=== PATIENT | female | born 1985 | race Caucasian/White ===

== ENCOUNTER 2018-04-10 20:09 | Emergency (ER) | END 2018-04-11 00:35 | disposition home or self-care (01) ==

== ENCOUNTER 2018-12-08 17:31 | Inpatient (IN) | payer MEDICAID ==
[~2018-12-08] VITALS: Ht 162.6 cm; Wt 80.4 kg
[~2018-12-08 17:31] MED LIST: PREN1TAB71 PO
[2018-12-08 18:02] VITALS: BP 128/80; PULSE 62; RESP 18; Ht 162.6 cm; Wt 80.4 kg
[2018-12-08] MEDS ORDERED: LACTATED RINGER'S 1,000 ML IV PRN (21:52)
[2018-12-08] MEDS ORDERED: MINERAL OIL LIGHT 10 ML VIAL TOP ONE (22:00)
[2018-12-08] MEDS ORDERED: OXYTOCIN 30 UNITS/LR 500 ML IV PRN (22:00)
[2018-12-08] MEDS ORDERED: IBUPROFEN 600 MG TAB PO PRN (22:00)
[2018-12-08] MEDS ORDERED: MISOPROSTOL 200 MCG TAB PR PRN (22:00)
[2018-12-08] MEDS ORDERED: METHYLERGONOVINE 0.2 MG INJ IM PRN (22:00)
[2018-12-08] MEDS ORDERED: LIDOCAINE 1% (MPF) 30 ML INJ INJ PRN (22:00)
[2018-12-08] MEDS ORDERED: BUTORPHANOL 1 MG INJ IV PRN (22:00)
[2018-12-08] MEDS ORDERED: BUTORPHANOL 2 MG INJ IV PRN (22:00)
[2018-12-08] MEDS ORDERED: CARBOPROST 250 MCG INJ IM PRN (22:00)
[2018-12-08] MEDS ORDERED: OXYTOCIN 30 UNITS/LR 500 ML IV SCH ×3 (22:00)
[2018-12-09] MEDS: LACTATED RINGER'S 1,000 ML IV SCH ×5 (00:32→23:47)
--- NOTE | 2018-12-09 01:29 | TRIAGE ---
OB Triage Datetime Report Generated by CPN: 12/09/2018 01:28 Datetime: 12/09/2018 01:24 Vaginal Exam Dilatation (cms): 4.0 Effacement (%): 60 Station: -2 Exam By: Jayson Villafana RN Vaginal Bleeding: None Cervix, Consistency: Soft Cervix, Position: Midposition Datetime: 12/09/2018 01:12 Assessment Type: Admission Assessment Vaginal Bleeding: None Maternal Assessment Level of Consciousness: Fully Conscious DTR's/Clonus: DTRs 2+; No Clonus Headache: Denies Blurred Vision: No Respiratory Effort: Unlabored; Regular Rhythm; Equal Expansion Breath Sounds, Left: Clear and Equal Breath Sounds, Right: Clear and Equal Nausea/Vomiting: Denies RUQ Epigastric Pain: Denies Lower Extremities Edema: Bilateral Lower Extremities Degree: 1+ Upper Extremities Edema: None Degree: None Facial Edema: None Fall Risk Assessment History of Falling: (0) No Secondary Diagnosis: (0) No Ambulatory Aid: (0) Bedrest/Nurse Assist IV Therapy: (20) Yes Gait: (0) Normal/Bedrest/Immobile Mental Status: (0) Oriented to Own Ability Fall Score: 20 Fall Risk Score Definition: No Risk: No action required Pain Assessment Pain Scale: 4 Pain Presence: Intermittent Pain Type: Contraction Pain Location: Abdomen; Back Membrane Status: Intact Datetime: 12/09/2018 00:57 Pain Assessment Pain Scale: 4 Pain Presence: Intermittent Pain Type: Contraction Pain Location: Abdomen; Back Pain Relief Measures: Comfort Measures Datetime: 12/09/2018 00:40 Stage of : OB Triage Maternal Assessment Level of Consciousness: Fully Conscious DTR's/Clonus: DTRs 2+; No Clonus Headache: Denies Blurred Vision: No Respiratory Effort: Unlabored; Regular Rhythm; Equal Expansion Breath Sounds, Left: Clear and Equal Breath Sounds, Right: Clear and Equal Nausea/Vomiting: Denies RUQ Epigastric Pain: Denies Facial Edema: None Fall Risk Assessment History of Falling: (0) No Secondary Diagnosis: (0) No Ambulatory Aid: (0) Bedrest/Nurse Assist Gait: (0) Normal/Bedrest/Immobile Mental Status: (0) Oriented to Own Ability Datetime: 12/09/2018 00:39 Time of Arrival: 12/08/2018 00:30 EGA: 39.6 Arrived By: Ambulatory Arrived From: Home Datetime: 12/09/2018 00:10 Stage of : OB Triage Monitor Mode: External Quality: Moderate Pattern: Normal: <= 5 Contractions in 10 Minutes Resting Tone Hagerman: Relaxed Heart Rate FHR Baseline Rate: 130 Monitor Mode: External US FHR Baseline Changes: No Baseline Change Variability: Moderate 6-25 bpm Accelerations: 15X15 Decelerations: None Category: Category I Datetime: 12/08/2018 23:20 Heart Rate FHR Baseline Rate: 130 Monitor Mode: External US FHR Baseline Changes: No Baseline Change Variability: Marked >25 bpm Accelerations: 15X15 Decelerations: Variable Category: Category II Datetime: 12/08/2018 22:28 Stage of : OB Triage Monitor Mode: External Quality: Moderate Pattern: Normal: <= 5 Contractions in 10 Minutes Resting Tone Hagerman: Relaxed Heart Rate FHR Baseline Rate: 140 Monitor Mode: External US Variability: Moderate 6-25 bpm Accelerations: 15X15 Pain Assessment Pain Scale: 4 Pain Presence: Intermittent Pain Type: Contraction Pain Location: Abdomen Datetime: 12/08/2018 21:53 Stage of : OB Triage Heart Rate FHR Baseline Rate: 140 Monitor Mode: External US Datetime: 12/08/2018 21:40 Stage of : OB Triage Datetime: 12/08/2018 21:07 Stage of : OB Triage Monitor Mode: External Quality: Moderate Pattern: Normal: <= 5 Contractions in 10 Minutes Resting Tone Hagerman: Relaxed Heart Rate FHR Baseline Rate: 130 Monitor Mode: External US FHR Baseline Changes: No Baseline Change Variability: Moderate 6-25 bpm Accelerations: 15X15 Decelerations: Variable Category: Category II Pain Assessment Pain Scale: 4 Pain Presence: Intermittent Pain Type: Cramping Pain Location: Abdomen Vaginal Exam Dilatation (cms): 3.0 Effacement (%): 50 Station: -3 Exam By: Zechariah Carbone Membrane Status: Intact Vaginal Bleeding: None Cervix, Consistency: Soft Cervix, Position: Posterior Presentation 'A': Cephalic Datetime: 12/08/2018 20:02 Labor Evaluation Frequency: X1 Monitor Mode: External Duration (sec)2399: 80 Quality: Mild Pattern: Normal: <= 5 Contractions in 10 Minutes Resting Tone Hagerman: Relaxed Heart Rate FHR Baseline Rate: 125 Monitor Mode: External US FHR Baseline Changes: No Baseline Change Variability: Moderate 6-25 bpm Accelerations: 15X15 Decelerations: None Category: Category I Datetime: 12/08/2018 19:21 Membrane Status: Intact Datetime: 12/08/2018 18:04 Time of Arrival: 12/08/2018 18:00 EGA: 39.6 Arrived By: Ambulatory Arrived From: Home Chief Complaint: high blood pressure Movement: Present Contractions: Irregular Rupture of Membranes: Denies Vaginal Discharge: Denies Recent Sexual Intercouse: Denies Abdominal Trauma: Not Applicable Patient Complaints: Other Additional Patient Complaints: sent from clinic for evaluation of high blood pressure Time Provider Notified: 12/08/2018 21:40 Provider Notified: Dr Moore Initial Plan: efm/ u/s, PIH lab Datetime: 12/08/2018 18:00 Stage of : OB Triage Maternal Assessment Level of Consciousness: Fully Conscious DTR's/Clonus: DTRs 2+; No Clonus Headache: Denies Blurred Vision: No Respiratory Effort: Unlabored; Regular Rhythm; Equal Expansion Breath Sounds, Left: Clear and Equal Breath Sounds, Right: Clear and Equal Nausea/Vomiting: Denies RUQ Epigastric Pain: Denies Lower Extremities Edema: Bilateral Lower Extremities Degree: 1+ Upper Extremities Edema: None Facial Edema: None Temperature Route: Oral Fall Risk Assessment History of Falling: (0) No Secondary Diagnosis: (0) No Ambulatory Aid: (0) Bedrest/Nurse Assist IV Therapy: (0) No Gait: (0) Normal/Bedrest/Immobile Mental Status: (0) Oriented to Own Ability Fall Score: 0 Fall Risk Score Definition: No Risk: No action required Monitor Mode: External Heart Rate FHR Baseline Rate: 130 Monitor Mode: External US Pain Assessment Pain Scale: 0 Datetime: 10/20/2018 15:31 Heart Rate FHR Baseline Rate: 135 Monitor Mode: External US Accelerations: 15X15 Category: Category I Datetime: 10/20/2018 14:29 Stage of : OB Triage Labor Evaluation Frequency: 0 Monitor Mode: External Pattern: Normal: <= 5 Contractions in 10 Minutes Resting Tone Hagerman: Relaxed Heart Rate FHR Baseline Rate: 135 Monitor Mode: External US Variability: Moderate 6-25 bpm Accelerations: 15X15 Decelerations: None Category: Category I Pain Presence: None/Denies Datetime: 10/20/2018 13:36 Stage of : OB Triage Labor Evaluation Frequency: 0 Monitor Mode: External Pattern: Normal: <= 5 Contractions in 10 Minutes Resting Tone Hagerman: Relaxed Heart Rate FHR Baseline Rate: 135 Monitor Mode: External US Variability: Moderate 6-25 bpm Accelerations: 15X15 Decelerations: None Category: Category I Pain Presence: None/Denies Pain Type: N/A Datetime: 10/20/2018 12:17 Stage of : OB Triage Assessment Type: Triage Time of Arrival: 10/20/2018 12:00 EGA: 32.6 Arrived By: Ambulatory Arrived From: Office Chief Complaint: C/O EPI GASTRIC PAIN Movement: Present Contractions: Denies/Absent Rupture of Membranes: Denies Vaginal Bleeding: None Vaginal Discharge: Denies Recent Sexual Intercouse: Denies Abdominal Trauma: Not Applicable Patient Complaints: Other Time Provider Notified: 10/20/2018 14:38 Provider Notified: BRENDON Initial Plan: EFM NST BPP CALL MD Maternal Assessment Level of Consciousness: Fully Conscious DTR's/Clonus: DTRs 2+; No Clonus Headache: Denies Blurred Vision: No Respiratory Effort: Unlabored; Regular Rhythm; Equal Expansion Breath Sounds, Left: Clear and Equal Breath Sounds, Right: Clear and Equal Nausea/Vomiting: Denies RUQ Epigastric Pain: Denies Lower Extremities Edema: None Degree: None Upper Extremities Edema: None Facial Edema: None Temperature Route: Oral Fall Risk Assessment History of Falling: (0) No Secondary Diagnosis: (0) No Ambulatory Aid: (0) Bedrest/Nurse Assist IV Therapy: (0) No Gait: (0) Normal/Bedrest/Immobile Mental Status: (0) Oriented to Own Ability Fall Score: 0 Fall Risk Score Definition: No Risk: No action required Monitor Mode: External (Annotations: INITAL PLACEMENT ) Monitor Mode: External US Pain Assessment Pain Scale: 3 Pain Presence: Intermittent Pain Type: Cramping Pain Location: Abdomen
--- NOTE | 2018-12-09 01:54 | PREAC ---
Date/Time of Note Date/Time of Note DATE: 12/09/18 TIME: :53 Anesthesia Eval and Record Evaluation Time Pre-Procedure Interview DATE: 12/09/18 TIME: :53 Age 33 Sex female NPO: 8 hrs Preoperative diagnosis labor pain Planned procedure epidural Past Medical History Past Medical History: Includes Surgery & Anesthesia Issues No known issue Meds Anticoagulation: No Beta Modesta within 24 hr: No Reason Beta Modesta not given: Pt. not on B-Modesta Reported Medications Vit No.130/Iron/FA ( Tablet) 1 Each Tablet, 1 EACH PO 10/20/18 Current Medications Lactated Ringer's 1,000 ml @ 125 mls/hr Q8H IV Last administered on 12/09/18at 01:47; Admin Dose 125 MLS/HR; Start 12/08/18 at 21:52 Butorphanol Tartrate (Stadol) 1 mg Q2H PRN IV .PAIN; Start 12/08/18 at 22:00 Butorphanol Tartrate (Stadol) 2 mg Q2H PRN IV .PAIN; Start 12/08/18 at 22:00 Lidocaine (Xylocaine 1% (Mpf)) 30 ml ONCE PRN INJ .EPISIOTOMY; Start 12/08/18 at 22:00 Oxytocin/Lactated Ringer's 500 ml @ 500 mls/hr ONCE POST IV ; Start 12/08/18 at 22:00 Oxytocin/Lactated Ringer's 500 ml @ 125 mls/hr POST IV ; Start 12/08/18 at 22:00 Ibuprofen (Motrin) 600 mg ONCE PRN PO .PAIN 1-5; Start 12/08/18 at 22:00 Lactated Ringer's 1,000 ml @ 2,000 mls/hr Q30M PRN IV .ANESTHESIA; Start 12/08/18 at 21:52 Oxytocin/Lactated Ringer's 500 ml @ 0 mls/hr ONCE PRN IV .VAGINAL BLEEDING; Start 12/08/18 at 22:00 Methylergonovine Maleate (Methergine) 0.2 mg ONCE PRN IM .VAGINAL BLEEDING; Start 12/08/18 at 22:00 Carboprost Tromethamine (Hemabate) 250 mcg ONCE PRN IM .VAGINAL BLEEDING; Start 12/08/18 at 22:00 Misoprostol (Cytotec) 1,000 mcg ONCE PRN [place] .VAGINAL BLEEDING; Start 12/08/18 at 22:00 Oxytocin/Lactated Ringer's 500 ml @ 0 mls/hr FOR AUGMENTATION IV Last administered on 12/09/18at 01:48; Admin Dose 1 MLS/HR; Start 12/08/18 at 22:00 Meds reviewed: Yes Allergies Coded Allergies: No Known Allergies (Verified Allergy, Unknown, 10/20/18) Allergies Reviewed: Yes Labs/Studies Labs Reviewed: Reviewed by anesthesiologist Result Diagram: 12/08/184 12/08/184 Laboratory Tests 12/08/18 18:54 Blood Bank Test 12/08/18 18:54 Antibody Screen NEGATIVE Blood Type O POSITIVE Rh Immune Globulin Candidate NO test: Positive Studies: ECG (n/a), CXR (n/a) Pre-procedure Exam Last vitals Vital Signs Date Temp Pulse Resp B/P (MAP) Pulse Ox O2 O2 Flow FiO2 Time Delivery Rate 12/08/18 98.0 62 18 128/80 Room Air 18:02 (96) Airway: Adequate mouth opening Mallampati: Mallampati I Teeth: Normal Lung: Normal Heart: Normal ASA Physical Status ASA physical status: 2 Emergency: None Planned Anesthetic Neuraxial: Epidural Pre-operative Attestations Prior to commencing anesthesia and surgery, the patient was re-evaluated, there was verification of: *The patient's identity *The results of appropriate recent lab work and preoperative vital signs *The above evaluation not changing prior to induction *Anesthetic plan, risk benefits, alternative and complications discussed with patient/family; questions answered; patient/family understands, accepts and wishes to proceed. MAHESH PANIAGUA MD Dec 09, 2018 01:54
[2018-12-09] MEDS ORDERED: FENTAnyl 2MCG/ML-ROPIV 0.2% 100 ML ONE (02:13)
[2018-12-09] MEDS ORDERED: FENTAnyl 2MCG/ML-ROPIV 0.2% 100 ML BAG EPI SCH (02:30)
[2018-12-09] MEDS ORDERED: NALOXONE (0.4 MG/ML) INJ IV PRN ×2 (02:30→10:30)
--- NOTE | 2018-12-09 06:29 | QN ---
Documentation Comment patient currently cat 2 tracing. I recommened a CD however patient declining. All the risk were explained to patient and at bedside. FABIANO OLIVAS MD Dec 09, 2018 06:29
--- NOTE | 2018-12-09 07:27 | QN ---
Documentation Comment patient continue to have non reassuring heart tracing; patient continues to decline CD. all risk was explained to patient. patient verbally reports she understand. FOB also understands at bedside. FABIANO OLIVAS MD Dec 09, 2018 07:27
--- NOTE | 2018-12-09 07:43 | PREOPHP ---
DATE OF ADMISSION: 12/08/2018 HISTORY OF PRESENT ILLNESS: Liliya Pride is a 33-year-old 4, para 2, EDC 12/09/2018 intrau terine at 40 weeks' gestational age was sent from clinic yesterday secondary to elevated bl ood pressures. She was evaluated to be in early labor. She denies any headache, nausea, vomiting, s hortness of breath, or visual changes. Her care took place at [facility] . PAST MEDICAL HISTORY: None. MEDICATIONS: vitamins. PAST SURGICAL HISTORY: None. OBSTETRIC HISTORY: Vaginal deliveries x2, missed AB x1. GYNECOLOGIC HISTORY: Twelve, regular 3 to 4 days. Denies any sexually transmitted disease. Sexuall y active with 1 partner. SOCIAL HISTORY: Denies any smoking, drugs or alcohol. FAMILY HISTORY: None. REVIEW OF SYSTEMS: Within normal limits. PHYSICAL EXAMINATION: HEENT: Within normal limits. LUNGS: CTA bilateral. CARDIOVASCULAR: S1, S2 is a regular rhythm. ABDOMEN: Gravid, nontender. Negative CVA bilateral. EXTREMITIES: Negative edema. No calf tenderness. PELVIC: Vaginal exam currently 9 cm dilated, 100% effaced, 0 station with spontaneous rupture of reg ular, heart tracing category 1. Tocometer regular contractions. ASSESSMENT: Intrauterine at 40 weeks' gestational age, admitted for labor augmentation wit h Pitocin with gestational hypertension. PLAN: Anticipate a vaginal delivery. Dictated By: FABIANO CARBAJAL/BRIANNA Conf#: [id number] DID#: [id number]
[2018-12-09] MEDS ORDERED: CITRIC ACID/NA CITRATE 30 ML CUP ONE (07:59)
[2018-12-09] MEDS ORDERED: SOD CHLORIDE 0.9% 1,000 ML IV SCH (08:00)
[2018-12-09] MEDS ORDERED: CEFAZOLIN 2 GM/50 ML (PMX) 50 ML IVPB SCH (08:00)
--- NOTE | 2018-12-09 08:01 | PREAC ---
Date/Time of Note Date/Time of Note DATE: 12/09/18 TIME: 08:00 Anesthesia Eval and Record Evaluation Time Pre-Procedure Interview DATE: 12/09/18 TIME: 08:00 Age 33 Sex female NPO: 8 hrs Preoperative diagnosis Distress Planned procedure Emergency Past Medical History Past Medical History: Includes Heme: Anemia : : (3), Para: (2), Gestational age: (40) Surgery & Anesthesia Issues No known issue Meds Anticoagulation: No Beta Modesta within 24 hr: No Reason Beta Modesta not given: Pt. not on B-Modesta Reported Medications Vit No.130/Iron/FA ( Tablet) 1 Each Tablet, 1 EACH PO 10/20/18 Current Medications Lactated Ringer's 1,000 ml @ 125 mls/hr Q8H IV Last administered on 12/09/18at 06:29; Admin Dose 125 MLS/HR; Start 12/08/18 at 21:52 Butorphanol Tartrate (Stadol) 1 mg Q2H PRN IV .PAIN; Start 12/08/18 at 22:00 Butorphanol Tartrate (Stadol) 2 mg Q2H PRN IV .PAIN; Start 12/08/18 at 22:00 Lidocaine (Xylocaine 1% (Mpf)) 30 ml ONCE PRN INJ .EPISIOTOMY; Start 12/08/18 at 22:00 Oxytocin/Lactated Ringer's 500 ml @ 500 mls/hr ONCE POST IV ; Start 12/08/18 at 22:00 Oxytocin/Lactated Ringer's 500 ml @ 125 mls/hr POST IV ; Start 12/08/18 at 22:00 Ibuprofen (Motrin) 600 mg ONCE PRN PO .PAIN 1-5; Start 12/08/18 at 22:00 Lactated Ringer's 1,000 ml @ 2,000 mls/hr Q30M PRN IV .ANESTHESIA; Start 12/08/18 at 21:52 Oxytocin/Lactated Ringer's 500 ml @ 0 mls/hr ONCE PRN IV .VAGINAL BLEEDING; Start 12/08/18 at 22:00 Methylergonovine Maleate (Methergine) 0.2 mg ONCE PRN IM .VAGINAL BLEEDING; Start 12/08/18 at 22:00 Carboprost Tromethamine (Hemabate) 250 mcg ONCE PRN IM .VAGINAL BLEEDING; Start 12/08/18 at 22:00 Misoprostol (Cytotec) 1,000 mcg ONCE PRN [place] .VAGINAL BLEEDING; Start 12/08/18 at 22:00 Oxytocin/Lactated Ringer's 500 ml @ 0 mls/hr FOR AUGMENTATION IV Last administered on 12/09/18at 01:48; Admin Dose 1 MLS/HR; Start 12/08/18 at 22:00 Naloxone HCl (Narcan) 0.2 mg Q2M PRN IV .RESP RATE; Start 12/09/18 at 02:30 Fentanyl/ Ropivacaine 100 ml EPIDURAL (PCEA) EPI ; Start 12/09/18 at 02:30 Sodium Chloride 1,000 ml @ 125 mls/hr Q8H IV ; Start 12/09/18 at 08:00 Cefazolin Sodium/ Dextrose 50 ml @ 100 mls/hr ONCE IVPB ; Start 12/09/18 at 08:00 Meds reviewed: Yes Allergies Coded Allergies: No Known Allergies (Verified Allergy, Unknown, 10/20/18) Allergies Reviewed: Yes Labs/Studies Labs Reviewed: Reviewed by anesthesiologist Result Diagram: 12/08/184 12/08/184 Laboratory Tests 12/08/18 18:54 Blood Bank Test 12/08/18 18:54 Antibody Screen NEGATIVE Blood Type O POSITIVE Rh Immune Globulin Candidate NO test: Positive Studies: ECG (n/a), CXR (n/a) Pre-procedure Exam Last vitals Vital Signs Date Temp Pulse Resp B/P (MAP) Pulse Ox O2 O2 Flow FiO2 Time Delivery Rate 12/08/18 98.0 62 18 128/80 Room Air 18:02 (96) Airway: Adequate mouth opening, Adequate thyromental dist Mallampati: Mallampati II Teeth: Normal Lung: Normal Heart: Normal ASA Physical Status ASA physical status: 2 Emergency: None Planned Anesthetic Neuraxial: Spinal Planned Pain Management Sub-arachniod narcotics, Parenteral pain med Pre-operative Attestations Prior to commencing anesthesia and surgery, the patient was re-evaluated, there was verification of: *The patient's identity *The results of appropriate recent lab work and preoperative vital signs *The above evaluation not changing prior to induction *Anesthetic plan, risk benefits, alternative and complications discussed with patient/family; questions answered; patient/family understands, accepts and wishes to proceed. RICCI KLEIN MD Dec 09, 2018 08:01
[2018-12-09] MEDS ORDERED: morphine SULFATE/PF (10 MG/10 ML) INJ ONE (08:06)
[2018-12-09] MEDS ORDERED: PHENYLephrine (100 MCG/ML) 10ML SYG ONE (08:06)
[2018-12-09] MEDS ORDERED: OXYTOCIN 10 UNIT INJ ONE (08:06)
[2018-12-09] MEDS ORDERED: AZITHROMYCIN 500MG/NS (PMX) 250 ML IV SCH (08:21)
[2018-12-09] MEDS ORDERED: METOCLOPRAMIDE 10 MG INJ ONE (08:29)
[2018-12-09] MEDS ORDERED: KETOROLAC 30 MG INJ ONE (08:29)
[2018-12-09] MEDS ORDERED: DEXAMETHASONE 4 MG/ML 1 ML INJ ONE (08:29)
[2018-12-09] MEDS ORDERED: CITRIC ACID/NA CITRATE 30 ML CUP PO ONE (08:30)
[2018-12-09] MEDS ORDERED: ONDANSETRON 4 MG INJ IV ONE (08:30)
[2018-12-09] MEDS ORDERED: OXYTOCIN 30 UNITS/LR 500 ML IV SCH (08:46)
--- NOTE | 2018-12-09 08:46 | OPPN ---
Date/Time of Note Date/Time of Note DATE: 12/09/18 TIME: 08:43 Operative Report Planned Procedure Procedure date Dec 09, 2018 Procedure(s) primary low transverse CD Performed by see signature line Senior Buyer: ALEXSANDER NASH MD 2nd Senior Buyer none Pre-procedure diagnosis Intrauterine at 40 weeks' gestational age, gestational hypertension. cat 2/3 heart tracing/ positive meconium [id number] Anesthesia Type: [id number] epidural Post-Procedure Post-procedure diagnosis same Findings a viable male apar weight 6lb 5 oz. X1 reducible cord around neck. positive meconium,, normal uterus tubes and ovaries Estimated Blood Loss: 500 - 600 mls (500) Specimen(s) none Grafts/Implant(s) none Complication(s) none FABIANO OLIVAS MD Dec 09, 2018 08:46
--- NOTE | 2018-12-09 08:54 | PAC ---
Date/Time of Note Date/Time of Note DATE: 12/09/18 TIME: 08:54 Post-Anesthesia Notes Post-Anesthesia Note Last documented vital signs Vital Signs Date Temp Pulse Resp B/P (MAP) Pulse Ox O2 O2 Flow FiO2 Time Delivery Rate 12/09/18 98.0 62 18 128/80 97 Room Air 08:58 (96) Activity: WNL Respiratory function: WNL Cardiovascular function: WNL Mental status: Baseline Pain reasonably controlled: Yes Hydration appropriate: Yes Nausea/Vomiting absent: Yes RICCI KLEIN MD Dec 09, 2018 08:54
[2018-12-09] MEDS ORDERED: OXYCODONE/ACETAMINOPHEN (5/325) TAB PO PRN (09:00)
[2018-12-09] MEDS ORDERED: CARBOPROST 250 MCG INJ IM PRN (09:00)
[2018-12-09] MEDS ORDERED: LANOLIN HPA 1 PKT TOP PRN (09:00)
[2018-12-09] MEDS ORDERED: MISOPROSTOL 200 MCG TAB PR PRN (09:00)
[2018-12-09] MEDS ORDERED: NACL 0.9% 3 ML SYG IV SCH (09:00)
[2018-12-09] MEDS ORDERED: OXYTOCIN 30 UNITS/LR 500 ML IV PRN (09:00)
[2018-12-09] MEDS ORDERED: METHYLERGONOVINE 0.2 MG INJ IM PRN (09:00)
[2018-12-09] MEDS ORDERED: DIPHENHYDRAMINE 50 MG INJ ONE (09:55)
[2018-12-09] MEDS ORDERED: ACETAMINOPHEN 500 MG TAB PO PRN (10:30)
[2018-12-09] MEDS ORDERED: HYDROmorphONE 0.5 MG/0.5 ML SYG IV PRN (10:30)
[2018-12-09] MEDS ORDERED: HYDROCODONE/APAP (5/325) TAB PO PRN (10:30)
[2018-12-09] MEDS ORDERED: NALBUPHINE HCL (10 MG/1 ML) INJ IV PRN (10:30)
[2018-12-09] MEDS ORDERED: DIPHENHYDRAMINE 50 MG INJ IV PRN (10:58)
[2018-12-09] MEDS ORDERED: morphine 4 MG/ML VIAL IV PRN ×2 (11:30)
[2018-12-09 11:45] VITALS: BP 135/81; PULSE 69; RESP 16
[2018-12-09] MEDS ORDERED: IBUPROFEN 600 MG TAB PO SCH (12:00)
[2018-12-09 12:49] VITALS: BP 128/81; PULSE 74; RESP 16
[2018-12-09] MEDS: KETOROLAC 30 MG INJ IV PRN (15:06)
[2018-12-09 15:34] VITALS: BP 121/81; PULSE 72; RESP 20
[2018-12-09] MEDS: CEFAZOLIN 2 GM/50 ML (PMX) 50 ML IVPB SCH (17:01)
[2018-12-09] MEDS: HYDROmorphONE 0.5 MG/0.5 ML SYG IV PRN ×2 (17:14→22:37)
[2018-12-09 19:50] VITALS: BP 138/71; PULSE 76; RESP 18
--- NOTE | 2018-12-09 21:29 | PAC ---
Date/Time of Note Date/Time of Note DATE: 12/09/18 TIME: 21:28 Post-Anesthesia Notes Post-Anesthesia Note Last documented vital signs Vital Signs Date Temp Pulse Resp B/P (MAP) Pulse Ox O2 O2 Flow FiO2 Time Delivery Rate 12/09/18 98.4 76 18 138/71 98 Room Air 19:50 (93) Activity: WNL Respiratory function: WNL Cardiovascular function: WNL Mental status: Baseline Pain reasonably controlled: Yes Hydration appropriate: Yes Nausea/Vomiting absent: No MAHESH PANIAGUA MD Dec 09, 2018 21:29
[2018-12-09 23:50] VITALS: BP 107/60; PULSE 83; RESP 18
[2018-12-10] MEDS: CEFAZOLIN 2 GM/50 ML (PMX) 50 ML IVPB SCH ×2 (00:47→08:26)
[2018-12-10 03:50] VITALS: BP 103/65; PULSE 74; RESP 19
[2018-12-10] MEDS: KETOROLAC 30 MG INJ IV PRN (05:19)
[2018-12-10] MEDS: LACTATED RINGER'S 1,000 ML IV SCH ×3 (07:00→22:57)
[2018-12-10 08:00] VITALS: BP 109/71; PULSE 68; RESP 18
[2018-12-10] MEDS: FERROUS SULFATE (EC) 325 MG TAB PO SCH ×2 (08:26→21:41)
--- NOTE | 2018-12-10 09:55 | OPR ---
DATE OF OPERATION: 12/10/2018 PREOPERATIVE DIAGNOSES: Intrauterine at 39 weeks gestational age, gestational hypertension , in labor, category 2/category 3 tracing remote from delivery. POSTOPERATIVE DIAGNOSES: Intrauterine at 39 weeks gestational age, gestational hypertensio n, in labor, category 2/category 3 tracing remote from delivery. PROCEDURE: Primary low transverse delivery. CARDIAC RN: Dr. Ignacio. ANESTHESIA: Epidural. COMPLICATIONS: None. ESTIMATED BLOOD LOSS: 500 mL. FINDINGS: A viable male, 5, 8 and 9 respectively at 1, 5, and 10 minutes, weight 6 pounds 5 ou nces, x1 reducible cord around the neck x1. Positive meconium. Normal uterus, tubes and ovaries. DESCRIPTION OF PROCEDURE: After explaining the risks, benefits and alternatives and consent signed i n chart, the patient was taken to the operating room where epidural anesthesia was found to be adequa te. She was then prepared and draped in normal sterile fashion in dorsal supine position with a left queen tilt. A Pfannenstiel skin incision was then made with a scalpel and carried to the underlying o f the fascia. The fascia was incised in midline, incision was extended laterally with Johnson scissors. The superior aspect of the fascial incision was grasped with curved clamps, elevated and the underl gm rectus muscles dissected off bluntly. Attention was then turned to the inferior aspect of the i ncision which in similar fashion was grasped, tented up with curved clamps and rectus muscles dissect ed off bluntly. The rectus muscle was in midline, peritoneum identified, entered sharply w ith Metzenbaum scissors. This incision was extended laterally and a bladder flap created digitally. The bladder blade was then reinserted and the lower segment incised in transverse fashion with a sca lpel. The uterine incision was extended laterally. The bladder blade was removed and the infant's h ead delivered atraumatically. The nose and mouth were suctioned and cord clamped and cut. The infan t was handed off to awaiting yeast stacker. The placenta was then removed. The uterus was exterioriz ed and cleared of all clots and debris. The uterine incision was repaired with 1-0 chromic in a runn ing locked fashion. A second layer of same suture was used for imbrication obtaining excellent hemos tasis. The uterus was returned to the abdomen. The gutters were cleared of all clots. The peritone um and rectus abdominis muscles reapproximated with 2-0 Vicryl in an interrupted fashion. The fascia was reapproximated with 0 Vicryl in a running fashion. The subcutaneous tissue was reapproximated w ith 2-0 plain gut in a running fashion. The skin was closed with absorbable tiffanie. The patient to lerated procedure well. Sponge, lap and needle counts correct. The patient was taken to recovery ro om in stable condition. Dictated By: FABIANO CARBAJAL/BRIANNA Conf#: [id number] DID#: [id number] CC: FABIANO OLIVAS MD;*EndCC*
[2018-12-10] MEDS: IBUPROFEN 600 MG TAB PO SCH ×3 (12:17→23:46)
--- NOTE | 2018-12-10 13:08 | DS ---
Date/Time of Note Date/Time of Note DATE: 12/10/18 TIME: 13:07 Obstetrical Discharge Record Final Diagnosis Final Diagnosis: Term delivered Vaginal Delivery Obstetrical Delivery: Spontaneous Condition on Discharge Physical Assessment Last Vitals: stable afebrile Voiding: Yes Bowel Movement: Yes Breast: Soft, non-tender, Filling Fundus: Firm Abdomen and Incision: soft nt Calf Tenderness: No Patient Condition: Fair FABIANO OLIVAS MD Dec 10, 2018 13:08
[2018-12-10 19:50] VITALS: BP 118/72; PULSE 78; RESP 19
[2018-12-10] MEDS: OXYCODONE/ACETAMINOPHEN (5/325) TAB PO PRN (19:51)
[2018-12-11 03:40] VITALS: BP 106/55; PULSE 69; RESP 18
[2018-12-11] MEDS: IBUPROFEN 600 MG TAB PO SCH ×4 (05:31→23:14)
[2018-12-11] MEDS: LACTATED RINGER'S 1,000 ML IV SCH ×2 (06:48→15:00)
[2018-12-11 08:31] VITALS: BP 123/73; PULSE 70; RESP 18
[2018-12-11] MEDS: OXYCODONE/ACETAMINOPHEN (5/325) TAB PO PRN (08:31)
[2018-12-11] MEDS: FERROUS SULFATE (EC) 325 MG TAB PO SCH ×2 (08:32→20:52)
[2018-12-11 15:53] VITALS: BP 130/67; PULSE 77; RESP 18
[2018-12-11 20:05] VITALS: BP 114/56; PULSE 75; RESP 18
--- NOTE | 2018-12-11 22:08 | QN ---
Documentation Comment i attempted to see patient in her room however patient was in nicu and not available to be evaluated. her nurse report she is stable and her incision is c/d/i. I will reattempt to see her tomorrow. FABIANO OLIVAS MD Dec 11, 2018 22:08
[2018-12-12 04:10] VITALS: BP 124/75; PULSE 83; RESP 20
[2018-12-12] MEDS: IBUPROFEN 600 MG TAB PO SCH ×2 (05:33→12:10)
[2018-12-12 08:00] VITALS: BP 123/79; PULSE 73; RESP 18
[2018-12-12] MEDS: FERROUS SULFATE (EC) 325 MG TAB PO SCH (09:11)
--- NOTE | 2018-12-12 11:31 | QN ---
Documentation Comment patient was seen and evaluated no complaints vs stable afebrile abd c/d/i no distention nt uterine fundus firm extremity no edema no calf tendernss a/ sp cd pod 3 stable afebrile p/ discharge home today or tomorrow FABIANO OLIVAS MD Dec 12, 2018 11:31
--- NOTE | 2018-12-12 11:33 | PD.PPDC ---
VEGETABLE BUNCHER Discharge Instruction Condition [id number] Patient Condition: [id number] Fair Diet [id number] Diet: Wkeav3o Resume Regular Diet Activity/Restrictions [id number] Activity: Fealu6h Normal Activity May Shower [id number] Restrictions: Jbeqf2c No Exercising No Lifting No Driving No Sexual Activity Nothing in the Vagina No [place] No Tampons, douche Follow-up Follow-up with Physician: 2, Week/Weeks Return to clinic for [id number] CHIEF CRUISER Instructions: Negmn0i Fever greater than 101 Chills Worsening abdominal pain Excessive Vaginal Bleeding More than 2 pads per hour Unable to tolerate diet [id number] OB Instructions: Bhyif5q Breast Tenderness Depression Blurried Vision Headache [id number] Surgical Instructions: Tzadp5h Incisional Drainage Incisional Redness FABIANO OLIVAS MD Dec 12, 2018 11:33
--- NOTE | 2018-12-12 19:03 | DS ---
DATE OF ADMISSION: 12/08/2018 DATE OF DISCHARGE: 12/12/2018 PRIMARY DIAGNOSES: 1. Intrauterine at 39 weeks' gestational age. 2. Gestational hypertension, in labor. 3. Category 2/category 3 tracing remote from delivery. PROCEDURE: Primary low transverse delivery. CONDITION ON DISCHARGE: Stable. ACTIVITY: None per vagina, no lifting x6 weeks. DIET: Regular. MEDICATIONS ON DISCHARGE: 1. Motrin. 2. Iron. 3. Colace. DISCHARGE SUMMARY: Ms. Liliya Pride underwent a primary delivery on 12/10/2018. She had a viable male, 5, 8 and 9 respectively at 1, 5 and 10 minutes, weight of 6 pounds 5 ounces. Sh riccardo had an uneventful postop day 1, 2, and 3. Her incision is clean, dry and intact. She is ambulatin g, tolerating diet, positive flatulence, positive bowel. She will follow up in the clinic in 2 weeks for /postop care. Dictated By: FABIANO CARBAJAL/BRIANNA Conf#: [id number] DID#: [id number]
== END 2018-12-12 15:30 | disposition home or self-care (01) | DRG 788 ==
LOC: OBT 17:31 → L-D 17:32 → OBT 21:40 → L-D 21:40 → MS1 12-09 11:38
PROVIDERS: ADMIT Obstetrics & Gynecology; ATTEND Obstetrics & Gynecology
PROC: 10D00Z1 Extraction of Products of Conception, Low, Open Approach (ICD-10-PCS; principal; 2018-12-09 08:00)
DX: O13.4 Gestational [pregnancy-induced] hypertension without significant proteinuria, complicating childbirth (principal); O76 Abnormality in fetal heart rate and rhythm complicating labor and delivery; O69.81X0 Labor and delivery complicated by cord around neck, without compression, not applicable or unspecified; O77.0 Labor and delivery complicated by meconium in amniotic fluid; Z3A.39 39 weeks gestation of pregnancy; Z37.0 Single live birth
CPT/HCPCS: 36415; 36600; 62319; 76815; 76818; 80053; 81001; 82803; 84560; 85025; 85384; 85610; 85730; 86592; 86850; 86900; 86901; 88307; G0463; J0456; J0690; J1100; J1170; J1200; J1885; J2274; J2370; J2405; J2590; J2765; J3010; J7030; J7120